=== PATIENT | male | born 1965 | race Caucasian/White ===

== ENCOUNTER 2019-03-26 13:12 | Inpatient (IN) | payer OTHER, MEDICAID ==
[~2019-03-26] VITALS: Ht 175.3 cm; Wt 82.6 kg
[2019-03-26] VITALS (19 sets, daily range): BP systolic 118–189; BP diastolic 68–117
--- NOTE | ~2019-03-26 | EKG ---
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
--- NOTE | 2019-03-26 13:21 | NUR ---
PT WENT STRAIGHT TO [facility]LE[facility] FLOOR INSTALLER PER DR. KNOTT.
[2019-03-26 13:48] LABS: ABSOLUTE BASOPHILS 0.1 thou/uL (0.0-0.2); ABSOLUTE EOSINOPHILS 0.3 thou/uL (0.0-0.7); ABSOLUTE LYMPHOCYTES 2.5 thou/uL (0.8-5.3); ABSOLUTE MONOCYTES 0.8 thou/uL (0.0-1.2); ABSOLUTE NEUTROPHILS 9.8 thou/uL (1.6-8.1); BASOPHILS 0.7 %; EOSINOPHILS 1.9 %; HEMATOCRIT 47.4 % (42.0-52.0); LYMPHOCYTES 18.7 %; MCH 27.5 pg (26.0-34.0); MCHC 33.7 g/dL (28.0-37.0); MCV 81.6 fL (80.0-100.0); MONOCYTES 5.7 %; MPV 9.2 fl. (7.2-11.1); NUCLEATED RBCS 0 /100WBC; PLATELET COUNT* 209 thou/uL (150-400); RBC 5.81 mil/uL (4.50-6.00); RDW-CV 13.9 % (10.5-14.5); WBC 13.5 thou/uL (4.0-11.0)
[2019-03-26 13:59] LABS: APTT 23.1 Seconds (25.0-31.3); PROTIME 10.4 Seconds (9.20-11.50)
[2019-03-26 14:09] LABS: ANION GAP 9 mmol/L (7-16); BUN 12 mg/dL (7-18); CALCIUM 8.3 mg/dL (8.5-10.1); CHLORIDE 99 mmol/L (98-107); CO2 31 mmol/L (21-32); CREATININE 1.1 mg/dL (0.6-1.3); GLUCOSE 358 mg/dL (70-99); POTASSIUM 4.1 mmol/L (3.5-5.1); SODIUM 139 mmol/L (136-145)
[2019-03-26 14:14] LABS: ALBUMIN 3.7 g/dL (3.4-5.0); ALKALINE PHOSPHATASE 93 U/L (46-116); CHOLESTEROL 189 mg/dL (<200); HDL CHOLESTEROL 22 mg/dL (>40); LDL CHOLESTEROL 141 mg/dL (<100); MAGNESIUM 2.1 mg/dL (1.8-2.4); SGOT 40 U/L (15-37); SGPT 43 U/L (30-65); TC:HDL 8.6 Ratio (Not establshd); TOTAL BILIRUBIN 0.4 mg/dL (<0.1-1.0); TOTAL PROTEIN 6.9 g/dL (6.4-8.2); TRIGLYCERIDE 132 mg/dL (<150); VLDL 26 mg/dL (<40)
[2019-03-26 14:37] LABS: SERUM ASSESSMENT Clear
--- NOTE | 2019-03-26 16:14 | H ---
[address] [address] HISTORY AND PHYSICAL Name: RUBI LARIOS Room: [address] IN M.R.#: [id number] Admission: 03/26/19 Attend Phys: Rafael Pabon MD Discharge: Date of : 63 Report #: [id number] THIS REPORT FOR: //name// CC: Christophe Pabon INDICATION: Acute heart failure. HISTORY OF PRESENT ILLNESS: The patient is a very pleasant 53-year-old gentleman with history of coronary artery disease and heart failure. He recently relocated to the area from [place]. He reports having a percutaneous coronary intervention with stent placement to the LAD many years ago at the [facility] in [place], [place]. He reports myocardial infarction at that time. He has been having orthopnea for the past several nights. Today, he became acutely short of breath with pronounced orthopnea and summoned EMS. Initial EKG showed sinus rhythm with Q-waves anteriorly and inferiorly with ST elevation in the anterior leads. The patient was taken to the cardiac catheterization lab for angiography. On angiography, he was found to have a patent stent in the mid-LAD and nonocclusive coronary artery disease otherwise. Left ventricular end diastolic pressure was significantly elevated consistent with acute heart failure. Left ventriculography was not performed in the setting of volume overload. Throughout this, the patient denied any chest pain, tightness or pressure. He was not having palpitations. He is without other cardiac complaint. PAST MEDICAL HISTORY: 1. Insulin requiring type 1 diabetes. 2. Coronary artery disease with previous percutaneous coronary intervention. 3. Congestive heart failure. 4. Dyslipidemia. 5. Obstructive sleep apnea. 6. Peripheral neuropathy. 7. Hypertension. 8. Dyslipidemia. 9. Chronic tobacco use. 10. Agoraphobia. ALLERGIES: PENICILLIN, WHICH CAUSES ANAPHYLAXIS. HOME MEDICATIONS: NovoLog 10 units q.a.c., Lantus 30 units at a.m. and evening, Voltaren 75 mg b.i.d. p.r.n., Flexeril 10 mg t.i.d. p.r.n., clonidine 0.1 mg b.i.d. p.r.n., trazodone 300 mg each day at bedtime, tramadol 50 mg q. 6 hours p.r.n., Cymbalta 60 mg daily, propranolol 40 mg daily, Zofran p.r.n., Nitrostat p.r.n., lisinopril 40 mg daily, hydroxyzine 50 mg t.i.d. p.r.n., gabapentin 600 mg b.i.d. and 1200 mg at bedtime, clonazepam 1 [place] [address] HISTORY AND PHYSICAL Name: RUBI LARIOS Room: [address] IN [facility].#: [id number] Admission: 03/26/19 Attend Phys: Rafael Pabon MD Discharge: Date of : 63 Report #: [id number] p.r.n., Brilinta 90 mg p.o. b.i.d., atorvastatin 40 mg daily, hydrochlorothiazide 25 mg daily, aspirin 81 mg daily. FAMILY HISTORY: The patient's parents are both in their 80s and living, patient's mother had some heart disease. The patient had one brother dying at the age of 25 with heart complications from diabetes. Another brother at age 46 of leukemia. SOCIAL HISTORY: The patient is . He has 3 children. He does not drink alcohol. He smokes anywhere from 1/4 pack to a pack of cigarettes daily. REVIEW OF SYSTEMS: As per HPI, otherwise, unremarkable. PHYSICAL EXAMINATION: VITAL SIGNS: Blood pressure 180/117, pulse 117. GENERAL: This is a pleasant white male, in no distress. Mood and affect appropriate. HEENT: The patient is wearing glasses. Nasal cannula in place. Extraocular muscles intact. Mucous membranes moist. NECK: Shows jugular venous distention. I do not appreciate bruit. CHEST: Reveals bilateral rales to the mid lung bear. CARDIAC: Reveals a tachycardic rhythm that is regular. I do not appreciate obvious gallop or murmur. ABDOMEN: Reveals normal bowel sounds. The abdomen is soft, nontender. EXTREMITIES: Shows no significant edema. Peripheral pulses palpable. SKIN: Dry. LABORATORY DATA: A 12-lead EKG shows sinus tachycardia with some ST elevation anteriorly. There are Q-waves in leads V1, V2, V3 and inferior leads. Echocardiogram is pending. Chest x-ray is pending. Labs are reviewed. Sodium 139, potassium 4.1, chloride 99, bicarbonate 31, BUN 12, creatinine 1.1, serum glucose 358, AST 40, total bilirubin 0.4, calcium 8.3, magnesium 2.1, alkaline phosphatase 93, ALT 93, total protein 6.9, albumin 3.7. EGFR 70. Initial troponin 0.09. Lipid profile: Total cholesterol 189, triglycerides 132, HDL 22, LDL 141. Coags are within normal limits. White blood cell count 13.5, hemoglobin 16.0, platelet count 209,000. IMPRESSION AND RECOMMENDATIONS: 1. Acute on chronic heart failure. Echocardiogram ordered and pending. The patient had prompt diuresis with initial bolus of Lasix. We will repeat Lasix in a.m. and follow up labs. Continue supplemental oxygen as needed. Resuming the patient's propranolol and lisinopril. 2. Coronary artery disease, presently appears stable. He has minimal elevation in troponin, likely due to cardiac strain from heart failure. I doubt this represents acute coronary syndrome. Repeating troponin in a.m. We will discontinue Brilinta as it has been several [place] [address] HISTORY AND PHYSICAL Name: RUBI LARIOS Room: [address] IN ..#: [id number] Admission: 03/26/19 Attend Phys: Rafael Pabon MD Discharge: Date of : 63 Report #: [id number] Continue daily aspirin. 3. Hypertension. Blood pressure is inadequately controlled. He has been off of his medications for some time. I am resuming home medications at this time and we will titrate as needed. 4. Dyslipidemia. Continue atorvastatin at current dose. He has been off this medication for a while. His LDL cholesterol reflects this. 5. Diabetes treatment: Resuming home regimen with sliding scale insulin. We will check hemoglobin A1c. 6. Peripheral neuropathy from diabetes. Resume gabapentin. 7. Agoraphobia with symptoms relatively well controlled at this time. Continue p.r.n. clonazepam. 8. Chronic tobacco use, cessation advised. <ELECTRONICALLY SIGNED> By: Rafael Pabon MD, FACC 03/26/19 1614 1512 1527Michael Gloria Pabon MD, FAC /nt
--- NOTE | 2019-03-26 16:43 | 2DMMODE ---
[place] [address] 2 D/M-MODE ECHOCARDIOGRAM Name: HARRIETRUBI VILLALOBOS Room: 001[facility] IN [facility]#: [id number] Admission: 03/26/19 Attend Phys: Rafael Pabon, Discharge: Date of : 63 Date of Service: 03/26/19 1642 Report #: [id number] THIS REPORT FOR: //name// APPROVED REPORT Study performed: 03/26/2019 15:47:43 EXAM: Comprehensive 2D, Doppler, and color-flow Echocardiogram Patient Location: In-Patient Room #: 001 Status: routine BSA: 1.96 HR: 106 bpm BP: 150/91 mmHg Rhythm: NSR Other Information Study Quality: Good Indications Hypertension/HDD 2D Dimensions IVSd: 15.13 (7-11mm) LVOT Diam: 20.91 (18-24mm) LVDd: 50.44 mm PWd: 13.41 (7-11mm) Ascending Ao: 34.21 (22-36mm) LVDs: 36.70 (25-40mm) Aortic Root: 34.66 mm Volumes Left Atrial Volume (Systole) LA ESV Index: 25.40 mL/m2 Aortic Valve AoV Peak Nahum.: 1.14 m/s AO Peak Gr.: 5.22 mmHg LVOT Max P.11 mmHg AO Mean Gr.: 2.72 mmHg LVOT Mean P.42 mmHg LVOT Max V: 0.88 m/s AO V2 VTI: 17.00 cm LVOT Mean V: 0.54 m/s GENNARO (VTI): 2.89 cm2 LVOT V1 VTI: 14.30 cm TDI Medial E' Nahum.: 0.08 m/s Lateral E' Nahum.: 0.11 m/[place] [address] 2 D/M-MODE ECHOCARDIOGRAM Name: HARRIETRUBIBENJAMIN VILLALOBOS Room: [address] IN .R.#: [id number] Admission: 03/26/19 Attend Phys: Rafael Pabon, Discharge: Date of : 63 Date of Service: 03/26/19 1642 Report #: [id number] Pulmonary Valve PV Peak Nahum.: 0.99 m/s PV Peak Gr.: 3.90 mmHg Left Ventricle The left ventricle is normal size. There is normal LV segmental wall motion. Moderate concentric left ventricular hypertrophy. Left ventricular systolic function is normal. LVEF is 50-55%. This study is not technically sufficient to allow evaluation of the LV diastolic function. Right Ventricle The right ventricle is normal size. The right ventricular systolic function is normal. Atria The left atrium size is normal. The right atrium size is normal. Aortic Valve The aortic valve is normal in structure. No aortic regurgitation is present. There is no aortic valvular stenosis. Mitral Valve The mitral valve is normal in structure. There is no mitral valve regurgitation noted. No evidence of mitral valve stenosis. Tricuspid Valve The tricuspid valve is normal in structure. There is no tricuspid valve regurgitation noted. Pulmonic Valve The pulmonary valve is normal in structure. There is no pulmonic valvular regurgitation. Great Vessels The aortic root is normal in size. IVC is normal in size and collapses >50% with inspiration. Pericardium There is no pericardial effusion. <Conclusion> The left ventricle is normal size. Moderate concentric left ventricular hypertrophy. Left ventricular systolic function is normal. LVEF is 50-55%. [place] [address] 2 D/M-MODE ECHOCARDIOGRAM Name: HARRIETRUBI Room: [address] IN ..#: [id number] Admission: 03/26/19 Attend Phys: Rafael Pabon, Discharge: Date of : 63 Date of Service: 03/26/191641 Report #: [id number] This study is not technically sufficient to allow evaluation of the LV diastolic function. IVC is normal in size and collapses >50% with inspiration. <ELECTRONICALLY SIGNED> By: Rafael Pabon MD, [facility] 03/26/191641 41 41 Rafael Pabon MD, FACC /INF
--- NOTE | 2019-03-26 17:35 | CARD ---
[address] [address] CARDIAC CATH REPORT Name: RUBI LARIOS Room: 001- ADM IN M.R.#: [id number] Admission: 03/26/19 Attend Phys: Rafael Pabon MD Discharge: Date of : 63 Report #: [id number] THIS REPORT FOR: //name// APPROVED REPORT Study performed: 03/26/2019 13:23:47 Patient Details Patient Status: ED Room #: The patient is a 53 year-old male Event Personnel [place] RTR Monitor, Loli De Jesus RN RN, Aislinn Chu RTR Scrub, Rafael Pabon Historical Site Guide Procedures Performed Left Heart Cath w/or w/o Coronaries [id number] [facility] Hemostasis w/ Angioseal , Aortogram Admission/Lab Medications/Medications given during procedure Lidocaine Subcut 20 ml, Nitroglycerin Drip IV 20 mcg per min, Lasix (Furosemide) IV 80 ml per hr, Morphine IV 2 mg Procedure Narrative The patient was brought emergently to the Cardiac Catheterization Laboratory and was prepped and draped in a sterile manner. The right femoral was infiltrated with 2% Lidocaine subcutaneous anesthesia. A [place] 6 FR sheath was inserted into the right femoral artery. Coronary angiography was performed using coronary diagnostic catheters. The right coronary system was accessed and visualized with a Diagnostic JR4 6Fr catheter. The left coronary system was accessed and visualized with a Diagnostic JL4 6Fr catheter. The left ventricle was accessed and visualized with a Diagnostic JR4 6Fr catheter. The patient tolerated the procedure well and there were no complications associated with the procedure. Intraoperative Conscious Sedation Sedation start time: 1331 Case end Time: 1345 Fluoro Time: 1.1 minutes Dose: DAP 71776 cGycm2 618.80 mGy Contrast Type and Amount: Visipaque 80 [place] [address] CARDIAC CATH REPORT Name: RUBI LARIOS Room: [address] IN ..#: [id number] Admission: 03/26/19 Attend Phys: Rafael Pabon MD Discharge: Date of : 63 Report #: [id number] Left Main Left main coronary artery appears relatively normal and gives rise to a left anterior descending and circumflex coronary artery. LAD The LAD appears to be a large caliber vessel with a patent stents in the midportion. There is moderate nonocclusive plaquing just patient proximal. The distal vessel appears mildly plaqued. Diagonal 1 A moderate size first diagonal branch is mildly plaqued. Diagonal 2 A moderate sized branched second diagonal appears mildly plaqued. Circumflex The circumflex was coronary artery is mildly plaqued and calcified proximally. It is a large caliber vessel. OM1 The vessel terminates in a large branched obtuse marginal branch that is mildly plaqued. Right Coronary The right coronary artery is diffusely mildly plaqued with approximate 20% narrowing in its proximal mid and distal portion. R PDA Posterior descending branch has a 50% proximal narrowing. The remainder the vessel is mildly plaqued. RPLV The right posterior lateral branch is mildly plaqued. Left Ventriculography Left Ventriculography was not performed. Hemodynamics The aortic pressure is 184/108 mmHg with a mean of 141 mmHg. The left ventricular pressure is 210/29 mmHg with a mean of mmHg. The left ventricular end diastolic pressure is 35 mmHg. Conclusion 1. Widely patent stents in the mid left and descending coronary artery. 2. Mild coronary plaquing diffusely as outlined above. 3. Moderately elevated left ventricular end-diastolic pressure consistent with acute diastolic heart failure. Recommendations 1. Continue risk factor modification and medical management. <ELECTRONICALLY SIGNED> By: Rafael Pabon MD, FACC 03/26/19 1735 1735 1735Micindra Pabon MD, FACC /INF
--- NOTE | 2019-03-26 18:44 | NUR ---
PT ADMITTED FROM [facility]. R GROIN SITE C/D/I. PT UP AD JUANA. NITRO GTT INFUSING. DENIES PAIN. PROGRESSING TOWARDS GOALS.
--- NOTE | 2019-03-26 22:07 | NUR ---
NITRO GTT HUNG IN ER, INFUSING AND NEAR COMPLETE. NO ORDER FOR NITRO GTT TO BE CONTINUES OR DC'D. CALL PLACED TO DR KNOTT. ORDER RECEIVED TO DC NITRO GTT, CLONIDINE 0.1MG X1 NOW, AND LASIX 40MG IVP IN AM.
[2019-03-27] VITALS (8 sets, daily range): BP systolic 97–142; BP diastolic 56–83
--- NOTE | 2019-03-27 01:11 | NUR ---
PT DOWNGRADED TO TELE STATUS PER DR KNOTT. REPORT GIVEN TO HELIO MANDUJANO. TRANSFERRED TO 213 AT 0110, ALL PERSONAL BELONGINGS TRANSFERRED WITH PT.
--- NOTE | 2019-03-27 03:21 | NUR ---
ASSUMED CARE OF PT AT 0100 FROM THE ICU. PT IS ALERT AND ORIENTED. VSS. PERRLA. NO COMPLAINTS OF PAIN. PT IS UP AD JUANA. NO SIGNS OF BLEEDING IN RIGHT GROIN. PT IS IN SINUS RYTHM ON THE TELEMETRY. PT IS RESTING COMFORTABLY IN BED. RESPIRATIONS ARE EVEN AND NONLABORED. WILL CONTINUE TO MONITOR PT.
[2019-03-27 05:44] LABS: ABSOLUTE BASOPHILS 0.1 thou/uL (0.0-0.2); ABSOLUTE EOSINOPHILS 0.3 thou/uL (0.0-0.7); ABSOLUTE LYMPHOCYTES 1.8 thou/uL (0.8-5.3); ABSOLUTE MONOCYTES 0.5 thou/uL (0.0-1.2); ABSOLUTE NEUTROPHILS 7.8 thou/uL (1.6-8.1); EOSINOPHILS 2.5 %; HEMATOCRIT 42.7 % (42.0-52.0); HEMOGLOBIN 14.5 gm/dL (14.0-18.0); LYMPHOCYTES 17.4 %; MCH 27.4 pg (26.0-34.0); MCHC 34.1 g/dL (28.0-37.0); MCV 80.4 fL (80.0-100.0); MONOCYTES 5.1 %; MPV 8.9 fl. (7.2-11.1); NUCLEATED RBCS 0 /100WBC; PLATELET COUNT* 168 thou/uL (150-400); RBC 5.31 mil/uL (4.50-6.00); RDW-CV 14.2 % (10.5-14.5); WBC 10.5 thou/uL (4.0-11.0)
[2019-03-27 06:15] LABS: CALCIUM 8.2 mg/dL (8.5-10.1); CREATININE 0.8 mg/dL (0.6-1.3); POTASSIUM 3.7 mmol/L (3.5-5.1); TROPONIN-I LEVEL 0.11 ng/mL (<0.06)
--- NOTE | 2019-03-27 11:25 | NUR ---
Pt is A&O. Resides at home with his 2 dtrs. Independent and active. Pt has a cane that he uses PRN. No hx of HH or SNF. Pt states that he has a [facility] nurse that comes out to check on him. Goal is home tomorrow, per cardiology. CM following
--- NOTE | 2019-03-27 14:16 | EKG ---
[place] [address] ELECTROCARDIOGRAM REPORT Name: RUBI LARIOS GRISELDA Room: [address] ADM IN M.R.#: [id number] Admission: 03/26/19 Attend Phys: Rafael Pabon MD Discharge: Date of : 63 Report #: [id number] THIS REPORT FOR: //name// [facility] Test Date: 2019-03-26 Test Time: 14:24:15 Pat Name: RUBI LARIOS Department: Room: [address] Gender: M Club Attendant: : 1965 Requested By: Rafael Pabon Order Number: [id number] Reading MD: Angelo Kennedy Measurements Intervals [place] Rate: 121 P: 15 DE: 138 QRS: 75 QRSD: 88 T: 239 QT: 321 QTc: 456 Interpretive Statements Sinus tachycardia Probable left atrial enlargement Probable LVH with secondary repol abnrm No previous ECG available for comparison Electronically Signed On 03-27-2019 14:15:52 METER INSTALLER AND REMOVER by Angelo Kennedy [email or web address] <ELECTRONICALLY SIGNED> By: Angelo Kennedy MD, [facility] 03/27/19 1415 1424 1424 Angelo Kennedy MD, FACC /EPI
--- NOTE | 2019-03-27 17:54 | NUR ---
Patient has been free from CP, throughout shift. Dry, harsh nonproductive cough noted and new order for tessalon recd from Dr. Pabon. 0800 LCTA, VSS, 1600 noted coarse lung sounds, sats 90-91% on r/a. 02 on at 2lpm/nc and sat increased to 94%. Pt has been up ad tristan in room demonstrating a steady gait, with fall precautions in place. NSR on environmental monitoring specialist with occasional PVC.
[2019-03-28] VITALS: BP 113/65
[2019-03-28 02:06] LABS: GLYCOHEMOGLOBIN (HGB A1C) 9.6 % (4.8-5.6)
[2019-03-28 04:00] VITALS: BP 128/73
[2019-03-28 07:50] VITALS: BP 141/81
[2019-03-28] MEDS ORDERED: INDERAL 20 MG T20 M1 PO (09:02)
[2019-03-28] MEDS ORDERED: NEURONTIN600 MG PO ×2 (09:02)
[2019-03-28] MEDS ORDERED: LIPITOR40 MG PO (09:02)
[2019-03-28] MEDS ORDERED: CYMBALTA30 MG PO (09:02)
[2019-03-28] MEDS ORDERED: HYDROXYZINE HCL25 M2 PO (09:02)
[2019-03-28] MEDS ORDERED: HYDROCHLOROTHIA25 M1 PO (09:02)
[2019-03-28] MEDS ORDERED: PRINIVIL40 MG PO (09:02)
--- NOTE | 2019-03-28 10:21 | NUR ---
VSS, ASSUMED CARE IN THE AM, ASSESSMENT PERFORMED AND CHARTED, FALL PRECAUTIONS IN PLACE AND CALL LIGHT IN REACH, PT IS A&O4 AND UP AD JUANA, BUT IS SOB, HE IS ON 2L NC, I PLACED PT ON 1L NC AND HIS O2 SAT DROPPED TO 85% SO HE REMAINS ON 2L NC, PT GOAL IS TO IMPROVE BREATHING, PT IS TRACING SR ON THE MONITOR, AND DENIES ANY PAIN, WILL FOLLOW WITH POSSISBLE DISCHARGE PT MAY NEED O2 TO GO HOME WITH.
[2019-03-28 11:49] VITALS: BP 137/73
--- NOTE | 2019-03-28 12:46 | NUR ---
Pt discharging to home today. Did not qualify for home o2. Provided with a list of PCPs.
[2019-03-28] MEDS ORDERED: CLONAZEPAM 0.50.5 M1 PO (12:52)
[2019-03-28] MEDS ORDERED: TRAZODONE HCL100 MG PO (12:53)
--- NOTE | 2019-03-28 16:40 | D ---
[address] [address] DISCHARGE SUMMARY Name: RUBI LARIOS Room: [address] IN M.R.#: [id number] Admission: 03/26/19 Attend Phys: Rafael Pabon MD Discharge: Date of : 63 Report #: [id number] THIS REPORT FOR: //name// CC: Christophe Pabon CARDIOLOGY DISCHARGE SUMMARY DISCHARGE DIAGNOSES: 1. Gutps-lx-euqjmro diastolic heart failure. 2. Type 2 myocardial infarction. 3. Type 1 insulin-requiring diabetes. 4. Coronary artery disease. 5. Hyperlipidemia. 6. Obstructive sleep apnea. 7. Peripheral neuropathy. 8. Hypertension. 9. Chronic tobacco use. 10. Agoraphobia. PROCEDURES DURING THE HOSPITALIZATION: 1. Coronary angiography and left heart catheterization. 2. Echocardiography. 3. Telemetry monitoring. HOSPITAL COURSE: The patient was admitted through the Emergency Room in acute respiratory distress. EKG showed sinus rhythm with ST segment elevation in the anterior leads. The patient was taken urgently to the cardiac catheterization lab. On catheterization, he was found to have a widely patent stent in the mid left anterior descending coronary artery. He had moderate diffuse nonocclusive plaquing noted. No intervention was necessary. An echocardiogram subsequently showed preserved left ventricular systolic function with left ventricular hypertrophy. He had grade 1 diastolic dysfunction noted. No significant valvular abnormalities. The patient was diuresed acutely with IV Lasix with prompt improvement in his respiratory distress. He remained hemodynamically stable throughout hospitalization. He had been out of his medications, which were resumed during this hospitalization with improvement in his blood pressure and heart rate. The patient is being discharged in stable condition. DISCHARGE MEDICATIONS: 1. Aspirin 81 mg daily. 2. Hydrochlorothiazide 25 mg daily. 3. Lisinopril 40 mg daily. 4. Cymbalta 60 mg daily. 5. Atorvastatin 40 mg daily. 6. Gabapentin 600 mg b.i.d. and 1200 [place] [address] DISCHARGE SUMMARY Name: RUBI LARIOS Room: [address]#: [id number] Admission: 03/26/19 Attend Phys: Rafael Pabon MD Discharge: Date of : 63 Report #: [id number] 7. Propranolol 40 mg b.i.d. 8. Trazodone 300 mg at bedtime. 9. NovoLog 10 units q.a.c. 10. Lantus 30 units b.i.d. 11. Clonazepam 1 mg q.8 hours p.r.n. 12. Hydroxyzine 50 mg q.8 hours p.r.n. 13. Nitrostat sublingual p.r.n. DISPOSITION: The patient is to follow up with cardiac nurse practitioner in 1 month. <ELECTRONICALLY SIGNED> By: Rafael Pabon MD, [facility] 03/28/19 1640 0910 0926Rafael Pabon MD, FACC /nt
== END 2019-03-28 19:00 | disposition home or self-care (01) | DRG 280 ==
LOC: M.ERS 13:12 → M.CL 13:12 → M.ICU 13:55 → M.2W 13:55 → M.TBA-CV 13:55 → M.ICU 14:19 → M.2W 03-27 00:32
PROVIDERS: Emergency Medicine; ADMIT Internal Medicine Cardiovascular Disease
PROC: B211YZZ Fluoroscopy of Multiple Coronary Arteries using Other Contrast (ICD-10-PCS; principal; 2019-03-26)
PROC: 4A023N7 Measurement of Cardiac Sampling and Pressure, Left Heart, Percutaneous Approach (ICD-10-PCS; principal; 2019-03-26)
DX: I21.A1 Myocardial infarction type 2 (principal); I50.33 Acute on chronic diastolic (congestive) heart failure; I25.10 Atherosclerotic heart disease of native coronary artery without angina pectoris; E78.5 Hyperlipidemia, unspecified; G47.33 Obstructive sleep apnea (adult) (pediatric); E10.9 Type 1 diabetes mellitus without complications; I11.0 Hypertensive heart disease with heart failure; F40.00 Agoraphobia, unspecified; Z82.49 Family history of ischemic heart disease and other diseases of the circulatory system; Z83.3 Family history of diabetes mellitus; Z80.6 Family history of leukemia; Z71.6 Tobacco abuse counseling; Z23 Encounter for immunization; Z79.899 Other long term (current) drug therapy